=== PATIENT | male | born 1955 | race Two or more races ===

== ENCOUNTER 2016-02-27 01:09 | Inpatient (IN) | payer OTHER ==
[~2016-02-27] VITALS: Ht 162.6 cm; Wt 71.7 kg
[2016-02-27] MEDS ORDERED: CARV3.122 PO (01:24)
[2016-02-27] MEDS ORDERED: ATOR10TA PO (01:24)
[2016-02-27] MEDS ORDERED: ISOS30TA6 PO (01:24)
[2016-02-27] MEDS ORDERED: FERR-58 PO (01:24)
[2016-02-27 01:59] LABS: BASOPHILS # (AUTO) 0.1 /CMM (0.0-0.2); BASOPHILS % (AUTO) 1.1 % (0.0-2.0); DIFF TOTAL % 100 %; EOSINOPHILS # (AUTO) 0.5 /CMM (0.0-0.7); EOSINOPHILS % (AUTO) 7.4 % (0.0-6.0); HEMATOCRIT 29 % (39-51); HEMOGLOBIN 9.7 g/dL (13.5-17.5); LYMPHOCYTES # (AUTO) 2.6 /CMM (0.8-4.8); LYMPHOCYTES % (AUTO) 41.1 % (20.0-44.0); MEAN CORPUSCULAR HEMOGLOBIN 32 PG (26.0-33.0); MEAN CORPUSCULAR HGB CONC 33 g/dl (31.0-36.0); MEAN CORPUSCULAR VOLUME 97 fL (80-96); MONOCYTES # (AUTO) 0.6 /CMM (0.1-1.30); NEUTROPHILS # (AUTO) 2.7 /CMM (1.8-8.9); NEUTROPHILS % (AUTO) 41.4 % (43.0-81.0); PLATELET COUNT (AUTO) 182 /CMM (150-450); RED BLOOD CELL COUNT(AUTO) 3.01 MIL/uL (4.5-6.0); WHITE BLOOD COUNT (AUTO) 6.4 K/uL (4.3-11.0)
[2016-02-27 02:06] LABS: CALCIUM, SERUM 9.2 mg/dL (8.5-10.1); CREATININE 2.6 mg/dL (0.6-1.3); POTASSIUM 3.6 mmol/L (3.5-5.1)
[2016-02-27 02:16] LABS: TROPONIN I 0.055 ng/mL (0.00-0.056)
[2016-02-27 02:18] LABS: INR 1.07 (0.87-1.13); PROTHROMBIN TIME 11.6 SECS (9.5-12.7)
[2016-02-27] MEDS ORDERED: MORPHINE SULFATE INJ 2 MG/ML DISP.SYRIN IV PRN (03:30)
[2016-02-27] MEDS ORDERED: ACETAMINOPHEN 325 MG TABLET PO PRN (03:30)
[2016-02-27] MEDS ORDERED: MAG HYDROX/AL HYDROX/SIMETH 30 ML UDC PO PRN (03:30)
[2016-02-27] MEDS ORDERED: ZOLPIDEM TARTRATE 5 MG TABLET PO PRN (03:30)
[2016-02-27] MEDS ORDERED: MAGNESIUM HYDROXIDE 30 ML UDC PO PRN (03:30)
[2016-02-27] MEDS ORDERED: ONDANSETRON HCL/PF 4 MG/2 ML VIAL IVP PRN (03:30)
[2016-02-27] MEDS ORDERED: NITROGLYCERIN 0.4 MG/TAB BOTTLE SL PRN (04:00)
[2016-02-27 04:30] VITALS: BP 117/71
[2016-02-27 07:15] LABS: PHOSPHORUS 3.3 mg/dL (2.5-4.9)
[2016-02-27 08:00] VITALS: BP 119/70
[2016-02-27] MEDS ORDERED: TIOT18CA3 INH (08:41)
[2016-02-27] MEDS ORDERED: CARV12.52 PO (08:41)
[2016-02-27] MEDS ORDERED: MELA3TAB PO (08:41)
[2016-02-27] MEDS ORDERED: ASPI-991 PO (08:41)
[2016-02-27] MEDS ORDERED: PANT40TA2 PO (08:41)
[2016-02-27] MEDS ORDERED: SEVE800T8 PO (08:41)
[2016-02-27] MEDS ORDERED: TRAM50TA2 PO (08:41)
[2016-02-27] MEDS ORDERED: DOCU-25 PO (08:41)
[2016-02-27] MEDS ORDERED: METOPROLOL TARTRATE 25 MG TABLET PO SCH ×3 (09:00→21:00)
[2016-02-27] MEDS: PANTOPRAZOLE 40 MG TABLET.DR PO SCH (09:49)
[2016-02-27] MEDS: ASPIRIN 325 MG TABLET PO SCH (09:49)
[2016-02-27 10:00] VITALS: BP 119/70
[2016-02-27] MEDS ORDERED: Magnesium 1GM/D5W 100ML PREMIX 100 ML IV SCH (12:30)
[2016-02-27] MEDS ORDERED: SECONDARY IV SET 1 EA INFUS.SET MC ONE (12:41)
[2016-02-27 16:00] VITALS: BP 118/69
[2016-02-27 20:00] VITALS: BP 126/80
[2016-02-27 20:21] VITALS: BP 126/80
[2016-02-27] MEDS: ATORVASTATIN 40 MG TABLET PO SCH (21:00)
[2016-02-28] VITALS (10 sets, daily range): BP systolic 110–122; BP diastolic 65–79
[2016-02-28 06:59] LABS: BASOPHILS # (AUTO) 0.1 /CMM (0.0-0.2); BASOPHILS % (AUTO) 0.9 % (0.0-2.0); DIFF TOTAL % 100 %; EOSINOPHILS # (AUTO) 0.5 /CMM (0.0-0.7); HEMATOCRIT 28 % (39-51); HEMOGLOBIN 9.6 g/dL (13.5-17.5); LYMPHOCYTES # (AUTO) 3.1 /CMM (0.8-4.8); LYMPHOCYTES % (AUTO) 46.1 % (20.0-44.0); MEAN CORPUSCULAR HEMOGLOBIN 34 PG (26.0-33.0); MEAN CORPUSCULAR HGB CONC 34 g/dl (31.0-36.0); MEAN CORPUSCULAR VOLUME 100 fL (80-96); MONOCYTES # (AUTO) 0.5 /CMM (0.1-1.30); MONOCYTES % (AUTO) 8.3 % (2.0-12.0); NEUTROPHILS # (AUTO) 2.4 /CMM (1.8-8.9); NEUTROPHILS % (AUTO) 36.7 % (43.0-81.0); PLATELET COUNT (AUTO) 203 /CMM (150-450); RED BLOOD CELL COUNT(AUTO) 2.81 MIL/uL (4.5-6.0); WHITE BLOOD COUNT (AUTO) 6.6 K/uL (4.3-11.0)
[2016-02-28] MEDS: PANTOPRAZOLE 40 MG TABLET.DR PO SCH ×2 (07:04→16:39)
[2016-02-28 07:05] LABS: CALCIUM, SERUM 9.2 mg/dL (8.5-10.1); CREATININE 2.6 mg/dL (0.6-1.3); POTASSIUM 4.3 mmol/L (3.5-5.1)
[2016-02-28] MEDS ORDERED: TIOTROPIUM BROMIDE 6 CAP/BOX CAP.W.DEV IH SCH (09:00)
[2016-02-28] MEDS ORDERED: CARVEDILOL 3.125 MG TABLET PO SCH (09:00)
[2016-02-28] MEDS ORDERED: TRAMADOL HCL 50 MG TABLET PO PRN (09:00)
[2016-02-28] MEDS ORDERED: ASPIRIN EC 81 MG TABLET.DR PO SCH (09:00)
[2016-02-28] MEDS ORDERED: ATORVASTATIN 10 MG TABLET PO SCH (09:00)
[2016-02-28] MEDS ORDERED: Magnesium 1GM/D5W 100ML PREMIX 100 ML IV SCH (11:30)
[2016-02-28] MEDS ORDERED: EPOETIN ALFA (10,000 UNIT) 10,000 UNIT/ML VIAL SQ ONE (12:30)
[2016-02-28] MEDS: IPRATROPIUM NEB FS 0.5 MG/2.5 ML AMPUL.NEB NEB SCH ×2 (15:59→19:26)
[2016-02-28] MEDS: FERROUS SULFATE (325 MG) 325 MG/TAB TABLET PO SCH (16:36)
[2016-02-28] MEDS: CARVEDILOL 3.125 MG TABLET PO SCH (16:37)
[2016-02-28] MEDS: ASPIRIN 325 MG TABLET PO SCH (16:37)
[2016-02-28] MEDS: DOCUSATE SODIUM 100 MG CAPSULE PO SCH (16:37)
[2016-02-28] MEDS: VIT B CMPLX 3/FA/VIT C/BIOTIN 1 TAB TABLET PO SCH (16:37)
[2016-02-28] MEDS: HEPARIN SODIUM, PORCINE 5000 UNITS/1 ML VIAL SQ SCH ×2 (16:50→22:03)
[2016-02-28] MEDS: Magnesium 1GM/D5W 100ML PREMIX 100 ML IV SCH ×2 (16:58→17:58)
[2016-02-28] MEDS: ATORVASTATIN 40 MG TABLET PO SCH (22:03)
[2016-02-29] VITALS: BP 107/63
[2016-02-29 00:18] VITALS: BP 107/63
[2016-02-29] MEDS: IPRATROPIUM NEB FS 0.5 MG/2.5 ML AMPUL.NEB NEB SCH ×3 (01:53→13:58)
[2016-02-29 04:00] VITALS: BP 99/66
[2016-02-29 04:22] VITALS: BP 99/64
[2016-02-29 06:58] VITALS: BP 109/63
[2016-02-29] MEDS: ASPIRIN 325 MG TABLET PO SCH (08:56)
[2016-02-29] MEDS: VIT B CMPLX 3/FA/VIT C/BIOTIN 1 TAB TABLET PO SCH (08:57)
[2016-02-29] MEDS: FERROUS SULFATE (325 MG) 325 MG/TAB TABLET PO SCH (08:57)
[2016-02-29] MEDS: PANTOPRAZOLE 40 MG TABLET.DR PO SCH ×2 (08:57→09:00)
[2016-02-29 09:00] VITALS: BP 109/63
[2016-02-29] MEDS: DOCUSATE SODIUM 100 MG CAPSULE PO SCH (09:00)
[2016-02-29] MEDS: CARVEDILOL 3.125 MG TABLET PO SCH (09:00)
[2016-02-29] MEDS: HEPARIN SODIUM, PORCINE 5000 UNITS/1 ML VIAL SQ SCH (09:06)
== END 2016-02-29 14:28 | disposition home or self-care (01) | DRG 205 ==
LOC: ER 01:12 → TELE 02:29 → MED 12:49 → TELE 13:10
PROVIDERS: ADMIT Nurse Practitioner Acute Care; ATTEND Nurse Practitioner Acute Care
PROC: 5A1D00Z (ICD-10-PCS; principal; 2016-02-28)
DX: M94.0 Chondrocostal junction syndrome [Tietze] (principal); N18.6 End stage renal disease; I50.23 Acute on chronic systolic (congestive) heart failure; I13.2 Hypertensive heart and chronic kidney disease with heart failure and with stage 5 chronic kidney disease, or end stage renal disease; I95.1 Orthostatic hypotension; Z95.1 Presence of aortocoronary bypass graft; Z99.2 Dependence on renal dialysis; D63.8 Anemia in other chronic diseases classified elsewhere; E78.5 Hyperlipidemia, unspecified; E83.42 Hypomagnesemia; I25.10 Atherosclerotic heart disease of native coronary artery without angina pectoris; K21.9 Gastro-esophageal reflux disease without esophagitis; Z82.49 Family history of ischemic heart disease and other diseases of the circulatory system; E83.9 Disorder of mineral metabolism, unspecified; I25.5 Ischemic cardiomyopathy
CPT/HCPCS: 36415; 71010-TC; 80048-TC; 80061-TC; 83735-TC; 84100-TC; 84484-TC; 85025-TC; 85730-TC; 87081-TC; 90935-TC; 93307-TC; A4606; J0885; J1644; J3475; Z7610

== ENCOUNTER 2016-03-03 12:50 | Inpatient (IN) | payer OTHER ==
[~2016-03-03] VITALS: Ht 162.6 cm; Wt 56.7 kg
[~2016-03-03 12:50] MED LIST: ASPI-991 PO; ATOR10TA PO; CARV12.52 PO; CARV3.122 PO; DOCU-25 PO; FERR-58 PO; ISOS30TA6 PO; MELA3TAB PO; PANT40TA2 PO; SEVE800T8 PO; TIOT18CA3 INH; TRAM50TA2 PO
[2016-03-03 13:57] LABS: BASOPHILS # (AUTO) 0.1 /CMM (0.0-0.2); BASOPHILS % (AUTO) 1.1 % (0.0-2.0); DIFF TOTAL % 100 %; EOSINOPHILS # (AUTO) 0.7 /CMM (0.0-0.7); EOSINOPHILS % (AUTO) 10.4 % (0.0-6.0); HEMATOCRIT 29 % (39-51); HEMOGLOBIN 9.8 g/dL (13.5-17.5); LYMPHOCYTES # (AUTO) 2.5 /CMM (0.8-4.8); LYMPHOCYTES % (AUTO) 37.4 % (20.0-44.0); MEAN CORPUSCULAR HEMOGLOBIN 32 PG (26.0-33.0); MEAN CORPUSCULAR HGB CONC 34 g/dl (31.0-36.0); MEAN CORPUSCULAR VOLUME 97 fL (80-96); MONOCYTES # (AUTO) 0.5 /CMM (0.1-1.30); MONOCYTES % (AUTO) 7.3 % (2.0-12.0); NEUTROPHILS % (AUTO) 43.8 % (43.0-81.0); PLATELET COUNT (AUTO) 206 /CMM (150-450); RED BLOOD CELL COUNT(AUTO) 3.04 MIL/uL (4.5-6.0); WHITE BLOOD COUNT (AUTO) 6.8 K/uL (4.3-11.0)
[2016-03-03] MEDS ORDERED: ATOR40TA PO (14:04)
[2016-03-03 14:09] LABS: CALCIUM, SERUM 9.1 mg/dL (8.5-10.1); POTASSIUM 3.8 mmol/L (3.5-5.1)
[2016-03-03 14:14] LABS: INR 1.05 (0.87-1.13)
[2016-03-03 14:25] LABS: ALBUMIN 2.8 g/dL (3.4-5.0); BILIRUBIN,DIRECT 0.5 mg/dL (0.0-0.2); BILIRUBIN,TOTAL 0.9 mg/dL (0.2-1.0); INDIRECT BILIRUBIN 0.4 mg/dL (0.0-1.1); TOTAL PROTEIN, SERUM 7.8 g/dL (6.4-8.2)
[2016-03-03 14:54] LABS: KETONES,URINE Negative (NEGATIVE); LEUKOCYTE ESTERASE ,URINE Trace (NEGATIVE)
[2016-03-03 14:55] LABS: ADD UA MICROSCOPIC YES
[2016-03-03 14:56] LABS: ADD URINE CULTURE NO; RBC,URINE 0-2 /HPF (0-2)
[2016-03-03 16:00] VITALS: BP 125/78
[2016-03-03] MEDS ORDERED: ACETAMINOPHEN 325 MG TABLET PO PRN (17:30)
[2016-03-03] MEDS ORDERED: ZOLPIDEM TARTRATE 5 MG TABLET PO PRN (17:30)
[2016-03-03] MEDS ORDERED: HYDROCODONE/APAP 5/325MG 1 EACH TABLET PO PRN (17:30)
[2016-03-03] MEDS ORDERED: ONDANSETRON HCL/PF 4 MG/2 ML VIAL IVP PRN (17:30)
[2016-03-03] MEDS ORDERED: MAG HYDROX/AL HYDROX/SIMETH 30 ML UDC PO PRN (17:30)
[2016-03-03] MEDS ORDERED: Z GUARD REMEDY 2 OZ OINT TP PRN (17:30)
[2016-03-03] MEDS ORDERED: MAGNESIUM HYDROXIDE 30 ML UDC PO PRN (17:30)
[2016-03-03] MEDS: SEVELAMER CARBONATE 800 MG TABLET PO SCH (18:40)
[2016-03-03] MEDS: CARVEDILOL 12.5 MG TABLET PO SCH (18:40)
[2016-03-03] MEDS: IPRATROPIUM NEB FS 0.5 MG/2.5 ML AMPUL.NEB NEB SCH (19:34)
[2016-03-03 20:00] VITALS: BP 107/62
[2016-03-03 20:29] VITALS: BP 107/62
[2016-03-03] MEDS: ISOSORBIDE MONONITRATE (30MG) 30 MG TAB.SR.24H PO SCH (21:00)
[2016-03-03] MEDS ORDERED: ATORVASTATIN 40 MG TABLET PO SCH (22:00)
[2016-03-04 00:11] VITALS: BP 102/57
[2016-03-04] MEDS: IPRATROPIUM NEB FS 0.5 MG/2.5 ML AMPUL.NEB NEB SCH ×4 (01:19→19:30)
[2016-03-04 04:35] VITALS: BP 104/57
[2016-03-04 06:57] VITALS: BP 115/69
[2016-03-04] MEDS ORDERED: PANTOPRAZOLE 40 MG TABLET.DR PO SCH ×2 (07:30)
[2016-03-04 08:00] VITALS: BP 115/69
[2016-03-04 08:25] LABS: BASOPHILS # (AUTO) 0.1 /CMM (0.0-0.2); BASOPHILS % (AUTO) 0.9 % (0.0-2.0); DIFF TOTAL % 100 %; EOSINOPHILS # (AUTO) 0.7 /CMM (0.0-0.7); EOSINOPHILS % (AUTO) 8.6 % (0.0-6.0); HEMATOCRIT 27 % (39-51); HEMOGLOBIN 9.4 g/dL (13.5-17.5); LYMPHOCYTES # (AUTO) 3.2 /CMM (0.8-4.8); LYMPHOCYTES % (AUTO) 41.4 % (20.0-44.0); MEAN CORPUSCULAR HEMOGLOBIN 36 PG (26.0-33.0); MEAN CORPUSCULAR HGB CONC 35 g/dl (31.0-36.0); MEAN CORPUSCULAR VOLUME 103 fL (80-96); MONOCYTES # (AUTO) 0.6 /CMM (0.1-1.30); MONOCYTES % (AUTO) 7.6 % (2.0-12.0); NEUTROPHILS # (AUTO) 3.3 /CMM (1.8-8.9); NEUTROPHILS % (AUTO) 41.5 % (43.0-81.0); PLATELET COUNT (AUTO) 188 /CMM (150-450); RED BLOOD CELL COUNT(AUTO) 2.61 MIL/uL (4.5-6.0); WHITE BLOOD COUNT (AUTO) 7.8 K/uL (4.3-11.0)
[2016-03-04 08:52] LABS: CALCIUM, SERUM 8.9 mg/dL (8.5-10.1); CREATININE 1.8 mg/dL (0.6-1.3); PHOSPHORUS 3.6 mg/dL (2.5-4.9); POTASSIUM 3.5 mmol/L (3.5-5.1)
[2016-03-04] MEDS ORDERED: TIOTROPIUM BROMIDE 6 CAP/BOX CAP.W.DEV IH SCH (09:00)
[2016-03-04] MEDS ORDERED: ASPIRIN EC 81 MG TABLET.DR PO SCH (09:00)
[2016-03-04] MEDS ORDERED: FERROUS SULFATE (325 MG) 325 MG/TAB TABLET PO SCH (09:00)
[2016-03-04] MEDS ORDERED: DOCUSATE SODIUM 100 MG CAPSULE PO SCH (09:00)
[2016-03-04] MEDS: SEVELAMER CARBONATE 800 MG TABLET PO SCH ×2 (09:18→13:00)
[2016-03-04] MEDS: ISOSORBIDE MONONITRATE (30MG) 30 MG TAB.SR.24H PO SCH ×2 (09:27→09:34)
[2016-03-04] MEDS: CARVEDILOL 12.5 MG TABLET PO SCH (09:33)
[2016-03-04 09:42] LABS: ANISOCYTOSIS 1+; PLATELET ESTIMATE ADEQUATE
[2016-03-04] MEDS ORDERED: Magnesium 1GM/D5W 100ML PREMIX 100 ML IV SCH (11:00)
[2016-03-04] MEDS: Magnesium 1GM/D5W 100ML PREMIX 100 ML IV SCH ×2 (12:00→12:53)
[2016-03-04] MEDS ORDERED: IV SET PRIMARY PUMP SET 1 EA INFUS.SET MC ONE (13:12)
[2016-03-04] MEDS ORDERED: MAGNESIUM OXIDE 400 MG TABLET PO ONE (14:00)
[2016-03-04 16:00] VITALS: BP 113/72
== END 2016-03-04 16:35 | disposition left against medical advice (07) | DRG 291 ==
LOC: ER 12:52 → TELE 15:44 → MED 03-04 09:09
PROC: 5A1D00Z (ICD-10-PCS; principal; 2016-03-03)
DX: I13.2 Hypertensive heart and chronic kidney disease with heart failure and with stage 5 chronic kidney disease, or end stage renal disease (principal); N18.6 End stage renal disease; I50.22 Chronic systolic (congestive) heart failure; N17.9 Acute kidney failure, unspecified; E83.42 Hypomagnesemia; E78.5 Hyperlipidemia, unspecified; E61.1 Iron deficiency; I25.5 Ischemic cardiomyopathy; K21.9 Gastro-esophageal reflux disease without esophagitis; Z95.1 Presence of aortocoronary bypass graft; Z99.2 Dependence on renal dialysis; I25.10 Atherosclerotic heart disease of native coronary artery without angina pectoris; D63.8 Anemia in other chronic diseases classified elsewhere; E83.9 Disorder of mineral metabolism, unspecified
CPT/HCPCS: 36415; 80048-TC; 80076-TC; 81000-TC; 83735-TC; 84100-TC; 85025-TC; 85730-TC; 87081-TC; A4606; J3475; Z7610